=== PATIENT | male | born 1980 | race Caucasian/White ===

== ENCOUNTER 2016-07-26 20:59 | Emergency (ER) | payer BC, OTHER ==
[~2016-07-26] VITALS: Ht 188 cm; Wt 113.8 kg
[2016-07-26 21:02] VITALS: BP 128/88
[2016-07-26] MEDS ORDERED: HYDROmorphone 1 MG/ML, 1ML IM STA (21:39)
[2016-07-26] MEDS ORDERED: KETOROLAC 60 MG/2 ML IM ONE (22:00)
== END 2016-07-26 23:06 | disposition home or self-care (01) ==
LOC: ED 22:14
DX: M54.42 Lumbago with sciatica, left side (principal); F17.210 Nicotine dependence, cigarettes, uncomplicated
CPT/HCPCS: 72110; 96372; 99284; J1170; J1885; J7512

== ENCOUNTER 2020-12-04 16:38 | Emergency (ER) | payer BC, OTHER ==
[~2020-12-04] VITALS: Ht 190.5 cm; Wt 94.7 kg
--- NOTE | 2020-12-04 17:16 | NUR ---
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
--- NOTE | 2020-12-04 17:26 | NUR ---
PATIENT WALKED BACK FROM [facility] WITH CHIEF C/O DIZZINESS X1 MONTH. PATIENT DENIES SOB, CP, N/V/D. PATIENT HAD SYNCOPAL EPISODE WEDNESDAY, POSITIVE LOC, DENIES HITTING HEAD. CONNECTED TO MONITOR, VSS, CALL LIGHT WITHIN REACH. SIGNIFICANT OTHER AT BEDSIDE.
--- NOTE | 2020-12-04 17:42 | NUR ---
ERMD AT BEDSIDE FOR EVALUATION.
[2020-12-04 17:53] LABS: BASOPHILS % (AUTO) 1 % (0-1); EOSINOPHILS % (AUTO) 0 % (1-7); LYMPHOCYTES % (AUTO) 23 % (22-44); MEAN CORPUSCULAR HEMOGLOBIN 31.4 pg (27.5-34.5); MEAN CORPUSCULAR HGB CONC 34.3 g/dL (33.2-36.2); MEAN PLATELET VOLUME 7.3 fL (7.4-10.4); MONOCYTES % (AUTO) 13 % (2-9); NEUTROPHILS % (AUTO) 64 % (42-75); PLATELET COUNT 206 x10^3/uL (130-400); RED BLOOD COUNT 5.25 x10^6/uL (4.38-5.82); RED CELL DISTRIBUTION WIDTH 12.6 % (9.4-14.8)
[2020-12-04 18:00] LABS: ANION GAP 7 mmol/L (5-15); CALCIUM 8.8 mg/dL (8.5-10.1); CHLORIDE 104 mmol/L (98-107)
[2020-12-04 18:12] LABS: CREATININE 1.16 mg/dL (0.7-1.3)
--- NOTE | 2020-12-04 18:14 | NUR ---
URINE COLLECTED AND SENT TO LAB.
[2020-12-04 18:23] LABS: MICROSCOPIC AUTO
[2020-12-04 18:33] LABS: BILIRUBIN, DIRECT 0.2 mg/dL (0.1-0.2)
[2020-12-04 18:36] LABS: BILIRUBIN,INDIRECT 0.4 mg/dL (0.0-2.0); BILIRUBIN,TOTAL 0.6 mg/dL (0.2-1.0); TOTAL PROTEIN 8.1 g/dL (6.4-8.2)
--- NOTE | 2020-12-04 18:52 | NUR ---
Report from Benji RUELAS
--- NOTE | 2020-12-04 18:52 | NUR ---
REPORT TO SURAJ MCDERMOTT FOR TRANSFER OF CARE.
[2020-12-04 19:02] VITALS: BP 123/87
[2020-12-04 19:09] LABS: TROPONIN I < 0.015 ng/mL (0.000-0.045)
== END 2020-12-04 19:54 | disposition home or self-care (01) ==
LOC: ED 16:45
DX: R42 Dizziness and giddiness (principal); R55 Syncope and collapse; R11.0 Nausea; R94.31 Abnormal electrocardiogram [ECG] [EKG]; J45.909 Unspecified asthma, uncomplicated; Z87.891 Personal history of nicotine dependence
CPT/HCPCS: 36415; 71045; 80048; 80076; 81001; 82040; 83735; 84443; 84484; 85025; 93005; 99285